=== PATIENT | female | born 1985 | race American Indian/Alaskan Native ===

== ENCOUNTER 2019-05-20 09:05 | Emergency (ER) | payer SELFPAY ==
[2019-05-20 09:11] VITALS: BP 167/85
--- NOTE | 2019-05-20 11:32 | Emergency Department Report ---
Chief Complaint: Skin Rash Stated Complaint: RASH ON STOMACH Time Seen by Provider: 05/20/19 11:26 - HPI History of Present Illness: 33-year-old -[place] Citizen female presents with complaints of scattered rash on her abdomen x3 days. Patient states the rash started on Monday and then cleared up on Monday and has returned again today. She states the rash is itchy but denies any pain or drainage from the rash. She also denies any change in her soaps, lotions, or cleaning products, recent hotel stays, or rash on her hands or feet. She states she is using a cream that helps with the itching. She denies any throat swelling or difficulty swallowing - ROS Review of Systems: Constitutional: denies: chills, diaphoresis, fever, malaise weakness ENT: denies: ear pain, throat pain Respiratory:denies: shortness of breath, cough Cardiovascular: denies: chest pain Gastrointestinal: denies: abdominal pain, nausea, vomiting, diarrhea. Musculoskeletal: denies: joint pain, joint swelling Skin: admits to: rash denies: lesions, changes in color, bruising, insect bites Neurological: denies: headache, weakness, numbness, paresthesias, confusion, abnormal gait Hematological/Lymphatic: denies: swollen glands - Exam Vital Signs: Vital Signs 05/20/19 09:08 Temperature 98 F Pulse Rate 93 H Respiratory 16 Rate Blood Pressure 167/85 O2 Sat by Pulse 98 Oximetry Physical Exam: General Limitations: No Limitations General appearance: alert, in no apparent distress - Head Head exam: Present: atraumatic, normocephalic - Eye Eye exam: Present: normal appearance, PERRL, EOMI. Absent: scleral icterus - ENT ENT exam: Present: normal orophraynx, mucous membranes moist - Neck Neck exam: Present: normal inspection - Respiratory Respiratory exam: Present: normal lung sounds bilaterally. Absent: respiratory distress - Cardiovascular Cardiovascular Exam: Present: regular rate, normal rhythm. Absent: systolic murmur, diastolic murmur, rubs, gallop - GI/Abdominal GI/Abdominal exam: Present: soft. Absent: distended, tenderness, guarding, rebound, rigid - Extremities Exam Extremities exam: Present: normal inspection - Back Exam Back exam: Present: normal inspection - Neurological Exam Neurological exam: Present: alert, oriented X3, normal gait. Absent: motor sensory deficit - Psychiatric Psychiatric exam: Present: normal affect, normal mood - Skin Skin exam: Present: warm, dry, intact, normal color, scattered mildly erythemic papular noted on on abdomen-nontender to palpation, no drainage or cellulitis noted MSE screening note: Focused history and physical exam performed. Due to findings the following was ordered: ED Medical Decision Making - Medical Decision Making 33-year-old patient here with complaints of a mild papular rash on her abdomen for the past 3 days. She denies any red flag symptoms. Rash is very mild on exam without tenderness or drainage or cellulitic changes. Patient's vitals are stable recommend patient try [id number] hydrocortisone cream in Claritin for symptoms and follow-up with her primary care provider. Discussed signs and symptoms that should prompt immediate return to the emergency department. Patient is well-appearing, nontoxic, and stable for discharge home. ED Disposition for MSE Clinical Impression: Papular rash Disposition: MED SCREENING EXAM-LEFT Is pt being admited?: No Condition: Stable Instructions: Contact Dermatitis (ED) Additional Instructions: Please purchase over the counter hydrocortisone cream and loratadine and take as instructed for 5 to 7 days. Referrals: [facility] [Other] - 3-5 Days
== END 2019-05-20 11:43 | disposition left against medical advice (07) ==
LOC: ED 09:05
DX: R23.8 Other skin changes (principal)
CPT/HCPCS: 99282